=== PATIENT | male | born 1980 | race Caucasian/White ===

== ENCOUNTER 2025-04-14 16:20 | Outpatient (AMB) | payer OTHER, SELFPAY ==
--- NOTE | 2025-04-14 16:22 | A.OFFPC_ITS ---
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 Gallbladder dysfunction with hyperkinetic ejection fraction: - History of gallbladder dysfunction wit h high ejection fraction, managed with Colestid, and surgical consultation completed. Atrial fibrillation and atrial flutter status post-ablation: - History of atrial fibrillation and flu tter, treated with ablation in 2020, currently stable. Lung nodule: - Right lung nodule under surveillance w ith periodic imaging. Anxiety: - Reports increased anxiety, linked to g astrointestinal issues, considering medication changes due to side effects. Review of Systems - Gastrointestinal: Reports diarrhea and post-infectious IBS symptoms. Denies blood or mucus in stool. - Cardiovascular: Denies current palpita tions or chest pain. - Respiratory: Denies cough or dyspnea. - Neurological: Denies headaches or dizz iness. - Psychological: Reports increased anxie ty, particularly related to gastrointestinal symptoms. 10-point ROS reviewed and negative excep t as noted in HPI Past Medical History - History of salmonella infection - Gallbladder dysfunction with hyperkine tic ejection fraction - Atrial fibrillation and atrial flutter status post-ablation - Lung nodule under surveillance - Anxiety, previously managed with Lexap ro Health Maintenance - Regular monitoring of lung nodule with imaging - Previous colorectal screening performe d in 2019, no polyps found Physical Exam General: Well-appearing, in no acute distress. Vital signs: Within normal limits. HEENT: Normocephalic, atraumatic. PERRLA, EOMI. Conjunctiva clear, sclera anicteric. Oropharynx clear, mucous membranes moist. TMs intact bilaterally. Neck: Supple, no lymphadenopathy, no thyromegaly, no JVD or carotid bruits. Cardiovascular: RRR, normal S1/S2, no murmurs, rubs, or gallops. Peripheral pulses 2+ and symmetric. No edema. Respiratory: Lungs clear to auscultation bilaterally, no wheezes, rales, or rhonchi. Normal effort. Abdomen: Soft, non-tender, non-distended. Normoactive bowel sounds. No hepatosplenomegaly, no masses. History of gallbladder issues with hyperkinetic, high ejection fraction. Right upper quadrant pain noted. MSK: Full range of motion, no joint swelling or deformity. Normal gait. Skin: Warm, dry, intact. No rashes, lesions, or pallor. Neuro: Alert and oriented x3. Cranial nerves II-XII intact. Strength 5/5 throughout. Sensation intact. Reflexes 2+ symmetric. Normal coordination and gait. Psych: Appropriate mood and affect. Normal judgment and insight. Reports increased anxiety levels, especially related to gastrointestinal issues. Plan 1. Salmonella Infection - Monitor post-infectious IBS symptoms a nd manage with dietary changes. 2. Gallbladder Dysfunction With Hyperkin etic Ejection Fraction - Continue Colestid and evaluate surgica l options if symptoms escalate. 3. Atrial Fibrillation And Atrial Flutte r Status Post-Ablation - Cardiology follow-up to ensure post-ab lation stability. 4. Lung Nodule - Continue imaging surveillance and cons ider PET scan if necessary. 5. Anxiety - Explore alternative anxiety medication s like buspirone to avoid weight gain. Discussion Notes During the visit, we discussed the patient's history of salmonella infection and its post-infectious effects, including IBS symptoms. We reviewed the management of gallbladder dysfunction and the potential for surgical intervention if symptoms worsen. The patient's cardiac history, including atrial fibrillation and flutter treated with ablation, was addressed with a plan for cardiology follow-up. The lung nodule will continue to be monitored with imaging, and a PET scan may be considered. We also discussed the patient's anxiety and potential medication adjustments to avoid weight gain, including the option of buspirone. Patient was informed and verbally consented to the use of an ambient scribefor clinic note documentation during this visit. Patient Instructions - Follow up with cardiology and gastroen terology as scheduled. - Continue current medications and dieta ry modifications for IBS management. - Monitor for any changes in symptoms an d report them promptly. - Consider discussing alternative anxiet y medications with your therapist or psy chiatrist. Total time spent caring for the patient today was 30 minutes. This includes time spent before the visit reviewing the chart, time spent documenting, reviewing medications, performing a medically necessary evaluation, counseling on diagnoses, care coordination, ordering appropriate tests, ordering appropriate medications. [facility] Medical History (Updated 04/14/25 @ 16:41 by Yossi Cordero MD) Gallbladder anomaly History of atrial fibrillation Surgical History (Updated 04/14/25 @ 16:41 by Yossi Cordero MD) H/O cardiac ablation Family History (Updated 04/14/25 @ 16:29 by Kelly Morrell [facility]) Mother Diabetes 1.5, managed as type 2 Father Stroke Clot Social History (Updated 04/14/25 @ 16:29 by Kelly Morrell [facility]) Housing: Apartment Alcohol intake: current Patient Tobacco Use Status: Former Tobacco user service: No Current occupational status: employed Cognitive needs: No Hearing needs: No Vision needs: Yes (rx glasses) Questionnaire PHQ-9 Over the last 2 weeks, how often have you been bothered by any of the following problems? 1. Little interest or pleasure in doing things: not at all 2. Feeling down, depressed, or hopeless: not at all 3. Trouble falling or staying asleep, or sleeping too much: several days 4. Feeling tired or having little energy: not at all 5. Poor appetite or overeating: not at all 6. Feeling bad about yourself - or that you are a failure or have let yourself or your family down: not at all 7. Trouble concentrating on things, such as reading the newspaper or watching television: not at all 8. Moving or speaking so slowly that other people could have noticed. Or the opposite - being so fidgety or restless that you have been moving around a lot more than usual: not at all 9. Thoughts that you would be better off or of hurting yourself in some way: not at all Total score: 1 Source: Developed by Drs. Chin L. Shannon Cardenas Kurt Kroenke and colleagues, with an educational john from [employer]. Thrive Questionnaire Date Thrive assessed: 04/14/25 I am a: Patient What is your living situation today?: I have a steady place to live Within the past 12 months, did the food you bought not last and you didn't have the money to get more?: Never true Within the past 12 months, did you worry whether your food would run out before you got money to buy more?: Never true Do you have trouble paying for medicines?: No Do you have trouble getting transportation to medical appointments?: No Do you have trouble paying your heating and electricity bill?: No Do you have trouble taking care of your child, family member or friend?: No Do you have trouble with day-to-day activities such as bathing, preparing meals, shopping, managing finances, etc.?: No Are you currently unemployed and looking for a job?: No Are you interested in more education?: Yes Please select the resources that you would like help with: None Currently or been in a relationship where the following occur: No concerns reported THRIVE Score: 0 AUDIT C Alcohol Use Questionnaire (AUDIT-C) 1. How often do you have a drink containing alcohol?: 2-3 times a week 2. How many drinks containing alcohol do you have on a typical day when you are drinking?: 1 or 2 3. How often do you have six or more drinks on one occasion?: Less than monthly Total Score: 4 BETSY-7 AMB Questionnaire BETSY-7 Date BETSY - 7 assessed: 04/14/25 Feeling nervous, anxious, or on edge: 2 = More than half the days Not being able to stop or control worryin = Several days Worrying too much about different things: 1 = Several days Trouble relaxin = Several days Being so restless that it is hard to sit still: 0 = Not at all Becoming easily annoyed or irritable: 0 = Not at all Feeling afraid as if something awful might happen: 1 = Several days Total BETSY-7 score (0-4 normal; 5-9 mild; 10-14 moderate; 15-21 severe): 6 Source: Developed by Shannon Ryder Kurt Kroenke and colleagues, with an educational john from [email or web address]. Physical exam (Primary Care) Vital Signs: Last Vital Signs Temp 98.0 F 04/14/25 16:26 Pulse 77 04/14/25 16:26 BP 138/92 H 04/14/25 16:26 Pulse Ox 77 L 04/14/25 16:26 Oxygen Delivery Method Room Air 04/14/25 16:26 BMI result Body Mass Index 26.7 Tobacco/Smoking Status: Tobacco use Status Tobacco use date assessed 04/14/25 04/14/25 16:25 Patient Tobacco Use Status Former Tobacco user 04/14/25 16:32 PHQ-9: PHQ-9 Score PHQ-9: Total score 1 04/14/25 16:25 Thrive Assessment: Date of Thrive Assessment Date Thrive assessed 04/14/25 04/14/25 16:25 Currently or been in a relationship where the following occur: No concerns reported Coding Level of Care Code New Pt Level 4 (54442) Diagnoses 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 Lung nodule R91.1 Anxiety F41.9 Elevated blood pressure reading R03.0 History of atrial fibrillation Z86.79 H/O cardiac ablation Z98.890 History of Salmonella gastroenteritis Z86.19 History of atrial flutter Z86.79 Assessment & Plan Assessment & Plan (1) Gallbladder anomaly: Code(s): 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 - Other congenital malformations of gallbladder Category: Medical (2) Lung nodule: Code(s): R91.1 - Solitary pulmonary nodule (3) Anxiety: Code(s): F41.9 - Anxiety disorder, unspecified (4) Elevated blood pressure reading: Code(s): R03.0 - Elevated blood-pressure reading, without diagnosis of hypertension (5) History of atrial fibrillation: Code(s): Z86.79 - Personal history of other diseases of the circulatory system Category: Medical (6) H/O cardiac ablation: Code(s): Z98.890 - Other specified postprocedural states Category: Surgical (7) History of Salmonella gastroenteritis: Code(s): Z86.19 - Personal history of other infectious and parasitic diseases (8) History of atrial flutter: Code(s): Z86.79 - Personal history of other diseases of the circulatory system Plan Orders: Orders Complete Blood Count Auto Diff Today Z13.9 - Encounter for screening, unspecified Comprehensive Met. Panel Today Z13.9 - Encounter for screening, unspecified HIV Ab/Ag Today Z13.9 - Encounter for screening, unspecified UA CC w/rflx Micro + Cult Today Z13.9 - Encounter for screening, unspecified Vitamin B12 and Folate Today Z13.9 - Encounter for screening, unspecified Vitamin D 1,25 dihydroxy Today Z13.9 - Encounter for screening, unspecified Chlamydia Species Ab Panel Today Z13.9 - Encounter for screening, unspecified Syphilis Screen Today Z13.9 - Encounter for screening, unspecified Hemoglobin A1c Today Z13.9 - Encounter for screening, unspecified Hepatitis B Surface Antibody Today Z13.9 - Encounter for screening, unspecified Hepatitis B Surface Antigen Today Z13.9 - Encounter for screening, unspecified Hepatitis C Antibody Today Z13.9 - Encounter for screening, unspecified Lipid Panel Today Z13.9 - Encounter for screening, unspecified CT NG by PCR Urine Today Z13.9 - Encounter for screening, unspecified Referrals Cardiology Referral Z86.79 - Personal history of other diseases of the circulatory system, Z98.890 - Other specified postprocedural states Gastroenterology Referral Q44.1 - Other congenital malformations of gallbladder Medications: New dicyclomine 10 mg PO BID 30 caps 0RF
[2025-04-14 16:26] VITALS: BP 138/92; PULSE 77; TEMP 36.7; O2SAT 77; BMI 26.7
--- OUTSIDE RECORDS SUMMARY | 2025-04-14 18:53 | XMS_ITS | Clinical Summary ---
Author Organization [facility] Address [facility] [place] [address] Care Team Providers Care Collection Systems Modeler Name Role Phone Dilia Pinedo APRN Primary Care Provider [phone] Allergies Active Allergy Reactions Criticality Noted Date Comments Penicillins Rash Medium 03/17/2019 Medications colestipoL (COLESTID) 1 gram Tablet Take 1 g by mouth daily. 1 Active predniSONE (Deltasone) 10 mg tabletIndicatio ns:Adenoiditis 6 PO QD x 2d, then 5 PO QD x 2d, then 4 PO QD x 2d, then 3 PO QD x 2d, then 2 PO QD x 2d, then 1 PO QD x 2d 42 tablet 4 Active Additional Information Patient not taking.Reported on 01/23/2024 predniSONE (Deltasone) 10 mg tabletIndicatio ns:Adenoiditis, Adenoid hypertrophy,ETD (Eustachian tube dysfunction), right 4 PO QD x 3, then 3 PO QD x 3d, then 2 PO QD x 3d, then 1 PO QD x 3d 45 tablet 4 Active Additional Information Patient not taking.Reported on 01/23/2024 acetaminophen (TYLENOL ORAL) Take by mouth. Active naproxen sodium (ALEVE ORAL) Take by mouth. Ac tive IBUPROFEN ORAL Take by mouth. Active Active Problems Problem Noted Date Diagnosed Date Atrial fibrillation 05/29/2022 Overview (05/29/2022): [place] Chronic abdominal pain 11/29/2021 Overview (05/29/2022): Last Assessment & Plan: 41-year-old gentleman with chronic right upper quadrant abdominal pain. His episodes of pain have lasted his entire adult life. He is without clear etiology. He is hopeful today the cholecystectomy will resolve his symptoms. He has no evidence of cholelithiasis or cholecystitis. His ejection fraction on HIDA scan is the upper limits of normal. Today, we discussed biliary dyskinesia, hyperdynamic gallbladder etc. I have recommended against cholecystectomy as this is unlikely to resolve his symptoms. It may in fact worsen his bile acid diarrhea. It may worsen some of his urgency bowel movement. I have recommended that he focus on dietary causes of his GI symptoms. He has never had a CT scan of the abdomen and pelvis. Therefore, we will plan for that study to rule out other solid organ dysfunction ARISTEO (obstructive sleep apnea) 04/01/2020 Overview (05/29/2022): HSAT 03/24/2020: AHI 9.7 (supine 14, non-supine 1.1), average O2 94%, low O2 sat 85% Current therapy: Positional therapy Last Assessment & Plan: IMPRESSION: mild, positional ARISTEO revealed on HSAT Discussed the pathophysiology, diagnosis/study results, treatment options and complications of sleep apnea in detail. Discussed the consequences of untreated sleep apnea, and its association with metabolic syndrome, cardiovascular and cerebrovascular disease. Positional therapy may be sufficient - we discussed devices like snore ball and bumpers to discourage supine sleeping. If positional therapy ineffective or not tolerated, will consider PAP therapy. Reviewed good sleep hygiene, including avoidance of alcohol and caffeine close to bedtime. Avoid drowsy driving. If sx continue/worsen or he develops risk factors like HTN, he was advised to call our office for f/u. HSAT 03/24/2020: AHI 9.7 (supine 14, non-supine 1.1), average O2 94%, low O2 sat 85% Current therapy: Positional therapy Overweight with body mass in dex (BMI) of 28 to 28.9 in adult 04/01/2020 Overview (05/29/2022): Last Assessment & Plan: Weight loss was advised through dietary changes and exercise. Daytime sleepiness 03/11/2020 Overview (05/29/2022): Last Assessment & Plan: IMPRESSION: Strong suspicion of sleep apnea based on classic symptoms, class III airway and FHx. May have been underlying trigger to hx of afib/flutter. Will order a Home Sleep Test. If no sleep apnea is noted, will consider an in lab overnight PSG followed by MSLT to look for narcolepsy if suspected. Discussed the pathophysiology, symptoms, diagnosis, treatment options and complications of sleep apnea in detail. Discussed the consequences of untreated sleep apnea, and its association with metabolic syndrome, cardiovascular and cerebrovascular disease. Discussed treatment options like conservative management (including weight loss, lateral sleep position, avoidance of alcohol and SHOE CUTTER depressants), surgical options, oral/ dental appliances, and PAP therapy. Reviewed good sleep hygiene, including avoidance of alcohol and caffeine close to bedtime. Driving safety precautions reinforced and the patient states he understands. Medication compliance reinforced. Weight loss through dietary changes and regular exercise was advised. Follow-up in 6-8 weeks based on sleep study results and treatment plan. Snoring 03/11/2020 Overview (05/29/2022): Last Assessment & Plan: As above. Social History Tobacco Use Types Packs/Day Years Used Date Smoking Tobacco: Former Cigarettes Smokeless Tobacco: Never Tobacco Cessation:Counseling Given: Not Answered Comments:Quit 2019 DH IPV Inpatient Questions Answer Date Recorded Does Anyone Try to Keep You From Having Contact with Others or Doing Things Outside Your Home? no 12/12/2023 Feels Threatened by Someone no 11/2023 Feels Unsafe at Home or Work/School no 12/12/2023 Physical Signs of Abuse Present no 12/12/2023 Sex and Gender Information Value Date Recorded Sex Assigned at Not on file Legal Sex Male 12:12 PM EST Gender Identity Not on file Sexual Orientation Not on file Last Filed Vital Signs Vital Sign Reading Time Taken Comments Blood Pressure 116/84 12/23/2023 8:29 AM EDT Pulse 78 12/23/2023 8:29 AM EDT Temperature 36.7 C (98 F) 12/23/2023 8:29 AM EDT Respiratory Rate 16 12/23/2023 8:29 AM EDT Oxygen Saturation 98% 12/23/2023 8:29 AM EDT Inhaled Oxygen Concentration - - Weight 89.6 kg (197 lb 9.6 oz) 12/23/2023 8:29 A M EDT Height 175.3 cm (5' 9 ) 12/12/2023 8:26 AM EDT Body Mass Index 29.18 12/12/2023 8:26 AM EDT Plan of Treatment Health Maintenance Due Date Last Done Comments CT Colonography 1978 Colonoscopy 1978 Colorectal Cancer Screening 1978 FIT DNA 1978 FIT 1978 Sigmoidoscopy (10 year) with FIT yearly 1978 Sigmoidoscopy 1978 HIV screen 1996 Hepatitis C Screening 1996 Lipid Screening 1996 Hepatitis B vaccine (0-59 yr s) and Risk (1) 1997 Tetanus/Diphtheria/Pertussis Vaccines (1 - Tdap) 1997 Covid-19 Vaccine (1 - season) 2025 Influenza (Flu) vaccine (1 o f 1 - Influenza standard series) 03/09/2025 Diabetes Screening (HgbA1C or Glucose) 10/29/2026, 04/24/2023 Procedures Procedure Name Priority Date/Time Associated Diagnosis Comments BASIC METABOLIC PANEL Routine 10/30/2023 8:05 AM EDT Pre-op testing Adenoid hypertrophy from Last 3 Months or Most Recently Relevant to Health Maintenance Results * (ABNORMAL) Basic Metabolic Panel (non-fasting) (10/30/2023 8:05 AM EDT) Glucose 93 65 - 199 mg/dL [facility] Comment:Diabetes: >=200 mg/d L plus symptoms Blood Urea Nitrogen 28(H) 10 - 20 mg/dL [facility] Creatinine 1.33 0.80 - 1.50 mg/dL [facility] Sodium 141 135 - 145 mmol/L [facility] Potassium 4.4 3.5 - 5.0 mmol/L [facility] Comment: Please note: Patients with WBC >100,000 may have falsely elevated Potassium levels. For accurate Potassium quantification in these patients send serum separator tube (gold top) for subsequent determinations. Contact the Clinical Chemistry Laboratory if there are any questions. Chloride 106 98 - 107 mmol/L [facility] Carbon Dioxide 25 22 - 31 mmol/L [facility] Anion Gap 10 5 - 15 mmol/L [facility] Calcium 8.9 8.5 - 10.5 mg/dL [facility] Est Glomerular Filtration Rate 68 >=60 mL/min/1. 73 m [facility] Comment: This patient's estimated GFR was calculated using the 2020 CKD-EPI equation. The estimated GFR can vary from the measured GFR by up to 30% in the absence of rapidly changing kidney function. Assessment of the estimated GFR is not appropriate when creatinine concentrations are rapidly changing. For clinical situations in which a more precise estimate of GFR is necessary, consider alternative methods of GFR estimation such as a 24-hour urine creatinine clearance. Assignment of CKD stage 1-5 for patients with an eGFR near the transition point between stages may be based on clinical assessment of muscle mass and symptoms in addition to eGFR. Blood 10/30/2023 8:05 AM EDT 10/30/2023 4:54 PM EDT Narrative Resulting Agency Comment Spec In Lab us Ivan Luke MD CHEMISTRY ORDERABLES Mariza ellis Result [facility] [place] [address] from Last 3 Months or Most Recently Relevant to Health Maintenance Insurance [id number] (Home) [address] [place] [id number] [facility] Care Teams Collection Systems Modeler Relationship Specialty Start Date End Date Dilia Pinedo APRN [phone] [address] PCP - General Family Medicine 05/25/22
--- OUTSIDE RECORDS SUMMARY | 2025-04-14 18:53 | XMS_ITS | Encounter Summary ---
Author Organization [facility] Address [address] [place] [address] Care Team Providers Care It Director Name Role Phone Unavailable Primary Care Provider Unavailabl e Reason for Visit * Reason Onset Date Comments ATTEMPT TO SCHEDULE 04/10/2025 Encounter Details Date Type Department Care Team (Late st Contact Info) Description 04/10/2025 Telephone Gastroenterology - [address] [phone] Damian Ashraf MD [address] [address] Social History Tobacco Use Types Packs/Day Years Used Date Smoking Tobacco: Never Assessed Sex and Gender Information Value Date Recorded Sex Assigned at Not on file Legal Sex Male 10:25 AM EDT Gender Identity Not on file Sexual Orientation Not on file documented as of this encounter Progress Notes * Fifi Wang - 04/10/2025 2:20 PM EDT Office visit scheduled. * Ayana Moreno - 04/10/2025 11:17 AM EDT 1st attempt to reach patient to schedule appointment for ABD PAIN AND LOOSE STOOLS. Left message tocall back and placed into called bin. documented in this encounter Plan of Treatment Upcoming Encounters Date Type Department Care Team (Late st Contact Info) Description 10/07/2025 8:20 AM EDT Consult Gastroenterology - [place] [address] [facility] [address] [place] [phone] Meghan Regalado, PIL[address] [facility] [address] [place] [address] documented as of this encounter Visit Diagnoses Not on filedocumented in this encounter
--- OUTSIDE RECORDS SUMMARY | 2025-04-14 18:53 | XMS_ITS | Clinical Summary ---
Author Organization [facility] 299 [facility] [address] Address [address] [place] [address] Phone Care Team Providers Care Environmental Engineering Aide Name Role Phone Unavailable Primary Care Provider Unavailabl e Encounters Date Type Department Care Team Description 04/10/2025 Telephone Gastroenterology - [address] [place] [phone] Damian Ashraf MD from Last 3 Months Social History Tobacco Use Types Packs/Day Years Used Date Smoking Tobacco: Never Assessed Sex and Gender Information Value Date Recorded Sex Assigned at Not on file Legal Sex Male 10:25 AM EDT Gender Identity Not on file Sexual Orientation Not on file Plan of Treatment Upcoming Encounters Date Type Department Care Team ([facility] st Contact Info) Description 10/07/2025 8:20 AM EDT Consult Gastroenterology - [place] 175 [facility] 175 [facility] [address] [place] [phone] Meghan Regalado NP 175 [facility] [address] [place] [address] Health Maintenance Due Date Last Done Comments Colorectal Cancer Screening: Colonoscopy 1978 DTaP,Tdap,and Td Vaccines (1 - Tdap) 1997 Hepatitis B Vaccines (1 of 3 - 19+ 3-dose series) 1997 Depression Screening 07/09/2024 Cholesterol Screening (Lipid Panel) 03/03/2025 HIV Screening 03/03/2025 Hepatitis C Screening 03/03/2025 Social Influencers of Health Screening 03/03/2025 COVID-19 Vaccine (1 - 2023-2 5 season) 2025 Influenza Vaccine (#1) 2025 RSV Immunization Adult Patie nts (1 - 1-dose 75+ series) 2053 HIB Vaccines Aged Out No longer eligi ble based on patient's age to complete this topic HPV Vaccines Aged Out No longer eligi ble based on patient's age to complete this topic Hepatitis A Vaccines Aged Out No long er eligible based on patient's age to complete this topic IPV Vaccines Aged Out No longer eligi ble based on patient's age to complete this topic MMR Vaccines Aged Out No longer eligi ble based on patient's age to complete this topic Meningococcal ACWY Vaccine Aged Out N o longer eligible based on patient's age to complete this topic Meningococcal B Vaccine Aged Out No l onger eligible based on patient's age to complete this topic Pneumococcal Vaccine: Pediat rics (0 to 5 Years) and At-Risk Patients (6 to 49 Years) Aged Out No longer eligible b ased on patient's age to complete this topic RSV Immunization Patients Un jamila 20 months Aged Out No longer eligible b ased on patient's age to complete this topic Varicella Vaccines Aged Out No longer eligible based on patient's age to complete this topic Insurance [facility]
== END 2025-04-14 17:04 | disposition home or self-care (01) ==
LOC: HO.HMCFMS 16:21
PROVIDERS: Visit Provider Student in an Organized Health Care Education/Training Program
DX: Q44.1 Other congenital malformations of gallbladder (principal); R91.1 Solitary pulmonary nodule; F41.9 Anxiety disorder, unspecified; R03.0 Elevated blood-pressure reading, without diagnosis of hypertension; Z86.79 Personal history of other diseases of the circulatory system; Z98.890 Other specified postprocedural states; Z86.19 Personal history of other infectious and parasitic diseases

== ENCOUNTER → 2025-04-14 16:20 | Outpatient (BNVA) | payer OTHER, SELFPAY | PROVIDERS: Visit Provider Student in an Organized Health Care Education/Training Program | DX: Z76.89 Persons encountering health services in other specified circumstances (principal); R91.1 Solitary pulmonary nodule; F41.9 Anxiety disorder, unspecified; R03.0 Elevated blood-pressure reading, without diagnosis of hypertension; Q44.1 Other congenital malformations of gallbladder; Z86.19 Personal history of other infectious and parasitic diseases; Z86.79 Personal history of other diseases of the circulatory system; Z13.30 Encounter for screening examination for mental health and behavioral disorders, unspecified; Z13.39 Encounter for screening examination for other mental health and behavioral disorders; Z98.890 Other specified postprocedural states | CPT/HCPCS: 99202 ==

== ENCOUNTER 2025-04-21 09:54 | Outpatient (REF) | payer BC, OTHER, SELFPAY ==
--- OUTSIDE RECORDS SUMMARY | 2025-04-21 11:18 | XMS_ITS | Clinical Summary ---
Author Organization [facility] Address [facility] [place] [address] Care Team Providers Care Integration Consultant Name Role Phone Dilia Pinedo APRN Primary Care Provider [phone] Allergies Active Allergy Reactions Criticality Noted Date [...] fibrillation 05/29/2022 Overview (05/29/2022): [place] in [place] Chronic abdominal pain 11/29/2021 Overview (05/29/2022): Last [...] lateral sleep position, avoidance of alcohol and PICU NURSE depressants), surgical options, oral/ dental appliances, and [...] EDT) Glucose 93 65 - 199 mg/dL [facility] Comment:Diabetes: >=200 mg/d L plus symptoms Blood Urea Nitrogen 28(H) 10 - 20 mg/dL [facility] Creatinine 1.33 0.80 - 1.50 mg/dL [facility] Sodium 141 135 - 145 mmol/L [facility] Potassium 4.4 3.5 - 5.0 mmol/L [facility] Comment: Please note: Patients with WBC >100,000 may have falsely elevated Potassium levels. For accurate Potassium quantification in these patients send serum separator tube (gold top) for subsequent determinations. Contact the Clinical Chemistry Laboratory if there are any questions. Chloride 106 98 - 107 mmol/L [facility] Carbon Dioxide 25 22 - 31 mmol/L [facility] Anion Gap 10 5 - 15 mmol/L [facility] Calcium 8.9 8.5 - 10.5 mg/dL [facility] Est Glomerular Filtration Rate 68 >=60 mL/min/1. 73 m [facility] Comment: This patient's estimated GFR was [...] Luke MD CHEMISTRY ORDERABLES Mariza ellis Result [facility] [place] [address] from Last 3 Months or Most Recently Relevant to Health Maintenance Insurance [id number] (Home) [address] [place] [address] [facility] O[facility] Care Teams Integration Consultant Relationship Specialty Start Date End Date Dilia Pinedo APRN [address] [address] PCP - General Family Medicine 05/25/22
--- OUTSIDE RECORDS SUMMARY | 2025-04-21 11:18 | XMS_ITS | Clinical Summary ---
Author Organization [facility] 299 [facility] [address] Address [address] [place] [address] Phone Care Team Providers Care Panel Lay Up Worker Name Role Phone Unavailable Primary Care Provider Unavailabl e Encounters Date Type Department Care Team Description 04/10/2025 Telephone Gastroenterology - [address] [place] [phone] Damian Ashraf MD from Last 3 Months Social History Tobacco Use Types Packs/Day Years Used Date Smoking Tobacco: Never Assessed Sex and Gender Information Value Date Recorded Sex Assigned at Not on file Legal Sex Male 10:25 AM EDT Gender Identity Not on file Sexual Orientation Not on file Plan of Treatment Upcoming Encounters Date Type Department Care Team ([facility] st Contact Info) Description 10/07/2025 8:20 AM EDT Consult Gastroenterology - [place] 175 [facility] 175 [facility] [address] [place] [phone] Meghan Regalado NP 175 [facility] [address] [place] [address] Health Maintenance Due Date Last Done Comments [...] patient's age to complete this topic Insurance [facility]
[2025-04-21 13:15] LABS: MANUAL DIFF FLAG NO
[2025-04-21 13:18] LABS: Appearance Urine Turbid; Glucose Urine UA Negative (Negative); PH 6.0 (5.0-9.0); Specific Gravity - Urine 1.025 (1.005-1.025)
[2025-04-21 13:37] LABS: Hematocrit 41.3 % (42.0-52.0); Hemoglobin 14.0 g/dl (14.0-18.0); Imm Gran Abs Auto 0.01 X10*3/uL (0.00-0.03); Imm Gran Pct Auto 0.2 % (0.0-0.4); Lymphocytes Absolute Auto 1.5 X10*3/uL (1.2-4.9); Mean Corpuscular HGB Conc 33.9 g/dl (31.0-36.0); Mean Corpuscular Hemoglobin 30.4 pg (27.0-33.0); Mean Corpuscular Volume 89.8 fL (80.0-98.0); NRBC Abs Auto 0.000 X10*3/uL (0.0-0.012); NRBC Pct Auto 0.0 /100WBC (0.0-0.2); Platelet Count 223 X10*3/uL (160-400); Red Blood Count 4.60 X10*6/uL (4.60-5.80); White Blood Count 4.8 X10*3/uL (4.8-10.8)
[2025-04-21 13:44] LABS: Total Hemoglobin (HGBA1C) 3562.7369 umol/L
[2025-04-21 14:04] LABS: Alanine Aminotransferase 30 U/L (0-40); Albumin Level 4.6 g/dL (3.5-5.0); Anion Gap 10 (12-20); Aspartate Amino Transferase 27 U/L (5-37); Blood Urea Nitrogen 21 mg/dL (9-16); Calcium 8.9 mg/dL (8.4-10.2); Carbon Dioxide 29 mmol/L (22-29); Chloride 108 mmol/L (96-108); Cholesterol 166 mg/dL (<200); Estimated Glomerular Filt Rate > 60; HDL Cholesterol 40 mg/dL (>40); Potassium 4.0 mmol/L (3.3-5.1); Sodium 143 mmol/L (135-145); Total Protein 7.2 g/dL (6.5-8.0); Triglycerides 142 mg/dL (<150)
[2025-04-21 14:16] LABS: Alkaline Phosphatase 50 U/L (39-117)
[2025-04-21 14:21] LABS: Folate 8.4 ng/mL (> or = 4.0); Vitamin B12 148 pg/mL (200-900)
[2025-04-21 15:24] LABS: CT PCR Urine NOT DETECTED (Not Detect.); NG PCR Urine NOT DETECTED (Not Detect.)
[2025-04-22 03:15] LABS: Syphilis Screen Nonreactive (Nonreactive)
[2025-04-22 04:03] LABS: HBS Num1 0.21 mIU/mL (0-7.99); HBsAGNum1 0.36 S/CO (0.00-0.99); HIV Num 1 0.06 S/CO (0.00-0.99); Hepatitis B Surface Antigen Negative (Negative); ~HepC Num1 0.08 S/CO (0.00-0.79); ~Hepatitis B Surface Antibody NONREACTIVE (Nonreactive); ~Hepatitis C Antibody Nonreactive (Nonreactive)
[2025-04-25 11:44] LABS: VITAMIN D (1,25 OH) D3 35 pg/mL; Vit D (1,25-Dihydroxy) Total 35 pg/mL (18-72); Vitamin D (1,25 OH) D2 <8 pg/mL
[2025-04-27 18:34] LABS: Chlamydia Trachomatis IgA <1:16 titer (<1:16)
== END 2025-04-21 09:55 | disposition home or self-care (01) ==
LOC: HO.10HDL 09:54
PROVIDERS: Visit Provider Student in an Organized Health Care Education/Training Program
DX: Z13.89 Encounter for screening for other disorder (principal); Z20.2 Contact with and (suspected) exposure to infections with a predominantly sexual mode of transmission; Z11.4 Encounter for screening for human immunodeficiency virus [HIV]; Z13.6 Encounter for screening for cardiovascular disorders; Z13.1 Encounter for screening for diabetes mellitus
CPT/HCPCS: 80053; 80061; 81003; 82607; 82652; 82746; 83036; 85025; 86631; 86632; 86706; 86780; 86803; 87340; 87389; 87491; 87591

== ENCOUNTER 2025-04-28 08:31 | Outpatient (REF) | payer BC, OTHER, SELFPAY ==
[2025-04-28 14:12] LABS: Gamma Glutamyl Transpeptidase 53 U/L (11-51)
== END 2025-04-28 08:32 | disposition home or self-care (01) ==
LOC: HO.HKASLDS 08:31
PROVIDERS: PCP Student in an Organized Health Care Education/Training Program; Visit Provider Student in an Organized Health Care Education/Training Program
DX: R91.1 Solitary pulmonary nodule (principal); R17 Unspecified jaundice; K58.9 Irritable bowel syndrome, unspecified; I48.91 Unspecified atrial fibrillation; F41.9 Anxiety disorder, unspecified; K82.8 Other specified diseases of gallbladder; I48.92 Unspecified atrial flutter; E53.8 Deficiency of other specified B group vitamins; Q44.1 Other congenital malformations of gallbladder; Z98.890 Other specified postprocedural states
CPT/HCPCS: 36415; 82248; 82977

== ENCOUNTER 2025-04-28 08:31 | Outpatient (AMB) | payer BC, OTHER, SELFPAY ==
[2025-04-28 08:38] VITALS: BP 131/84; PULSE 68; RESP 16; TEMP 36.6; O2SAT 98; BMI 27.0
--- NOTE | 2025-04-28 08:38 | A.OFFPC_ITS ---
Vital Signs 04/28/25 08:38 Height 5 ft 10.55 in Weight 191 lb 4 oz BMI 27.0 BP 131/84 Blood Pressure Location Rt brachial Position Sitting Respiration 16 Pulse 68 Pulse Source Pulse Oximeter Temp 97.8 F Temp Source Oral Pulse Oximetry (%) 98 Oxygen Delivery Method Room Air Intake Visit Reasons: 2 wk f/u Accompanied by: Self / Same As Patient Allergies Penicillins (PCN) Allergy (Intermediate, Verified 04/14/25 16:27) Rash Tobacco use date assessed: 04/14/25 Dental Screening Dental Screen Date: 04/28/25 Did you have a dental visit in the last 12 months?: Yes Was dental information given to patient?: Patient has dentist HPI HPI Comments History of Present Illness Details Consent Patient was informed and verbally consented to the use of an ambient scribe for clinic note documentation during this visit. 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 Postinfectious Irritable Bowel Syndrome (IBS): The patient developed IBS symptoms following a salmonella infection in February. He continues to experience gastrointestinal disturbances which impact function, and finds partial relief with dietary modifications. He reports exacerbation of symptoms requiring occasional use of NSAIDs, despite being advised to minimize their use due to gastrointestinal concerns. Gallbladder Dysfunction with Hyperkinetic Ejection Fraction: The patient has a documented history of gallbladder dysfunction characterized by hyperkinetic ejection fraction. The condition has progressively worsened, and he has been referred to gastroenterology. 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 Surgical History: - Ablation for atrial fibrillation and a trial flutter in 2020 Medications: Dicyclomine Social History: Diagnostic Results: - Labs: White blood cells, red blood oleg ls, hemoglobin are normal; hematocrit mildly low at 41.3%; total bilirubin elevated at 2.1 mg/dL; vitamin B12 low at 148 pg/mL; other electrolytes, liver function tests except total bilirubin, renal function, glucose, lipids, and vitamins are normal; negative for hepatitis B, hepatitis C, and HIV. Review of Systems - Gastrointestinal: Reports ongoing IBS symptoms; reports relief of symptom inflammation with NSAID use - Cardiovascular: Denies current symptom s related to atrial fibrillation or flutter; stable post-ablation - Respiratory: Denies respiratory sympto ms related to right lung nodule surveillance - Psychiatric: Reports anxiety and consi deration for switching to buspirone 10-point ROS reviewed and negative excep t as noted in HPI Past Medical History - Postinfectious irritable bowel syndrom e (IBS) following salmonella infection - Gallbladder dysfunction with hyperkine tic ejection fraction - Atrial fibrillation and atrial flutter , status post-ablation - Right lung nodule under surveillance - Anxiety Health Maintenance - Surveillance imaging for lung nodule e very 6 months - Initiation of vitamin B12 injections t o manage deficiency Physical Exam General: Well-appearing, in no acute distress. Vital signs: Blood pressure improved compared to last visit. HEENT: Normocephalic, atraumatic. PERRLA, EOMI. Conjunctiva clear, sclera anicteric. Oropharynx clear, mucous membranes moist. TMs intact bilaterally. Neck: Supple, no lymphadenopathy, no thyromegaly, no JVD or carotid bruits. Cardiovascular: RRR, normal S1/S2, no murmurs, rubs, or gallops. Peripheral pulses 2+ and symmetric. No edema. Past medical history of atrial fibrillation and atrial flutter, status post ablation in 2020, currently stable. Respiratory: Lungs clear to auscultation bilaterally, no wheezes, rales, or rhonchi. Normal effort. Right lung nodule under surveillance with periodic imaging. Abdomen: Soft, non-tender, non-distended. Normoactive bowel sounds. No hepatosplenomegaly, no masses. Gallbladder dysfunction with hyperkinetic ejection fraction. MSK: Full range of motion, no joint swelling or deformity. Normal gait. Skin: Warm, dry, intact. No rashes, lesions, or pallor. Neuro: Alert and oriented x3. Cranial nerves II-XII intact. Strength 5/5 throughout. Sensation intact. Reflexes 2+ symmetric. Normal coordination and gait. Psych: Appropriate mood and affect. Normal judgment and insight. History of anxiety, considering switching medication to buspirone, but waiting to reassess after B12 levels are improved. Plan 1. Postinfectious Irritable Bowel Syndro me (Ibs) - Continue dietary modifications and cur rent symptom management strategies. 2. Gallbladder Dysfunction With Hyperkin etic Ejection Fraction - Follow up with the surgical team regar ding potential intervention. - Use of NSAIDs as needed is acceptable for symptom relief. 3. Atrial Fibrillation And Atrial Flutte r - Schedule cardiology follow-up to monit or condition post-ablation. 4. Right Lung Nodule - Continue surveillance with CT scans ev macie 6 months and maintain pulmonology referral. 5. Anxiety - Consider switching to buspirone after vitamin B12 levels are stabilized to see if symptoms improve. 6. Vitamin B12 Deficiency - Initiate vitamin B12 injections with a regimen to boost levels followed by reevaluation. Discussion Notes During this visit, I discussed with the patient his ongoing postinfectious IBS and the associated gallbladder dysfunction. We reviewed his management strategies, including dietary modifications and symptom management, and discussed NSAID use for inflammatory episodes. We touched on the surgical options for gallbladder dysfunction with a referral already made to gastroenterology and a general surgery referral was initiated given worsening symptoms. We reviewed his past history of atrial fibrillation, noting stability post-ablation and the need for cardiology follow-up. Surveillance of the noted lung nodule was emphasized, with a pulmonology referral in place. Anxiety management was discussed with potential buspirone use after addressing vitamin B12 deficiency. Consent for these discussions and plans was duly documented, and follow-up steps were detailed. Patient Instructions - Follow dietary changes for IBS managem ent. - If contacted, follow up with the surgi yefri team about gallbladder dysfunction. - Schedule and attend a cardiology follo w-up. - Maintain CT scan appointments every 6 months for lung nodule surveillance. - Arrange to receive vitamin B12 injecti ons as planned and follow up for levels. - Monitor for any side effects or worsen ing symptoms and seek care if necessary. Medical Decision Making The patient?s current presentation indicates ongoing management needs for several chronic conditions. IBS symptoms following a salmonella infection require dietary management. The gallbladder dysfunction?s worsening symptoms suggest surgical evaluation, while NSAID use remains justified for acute relief. Stable post-ablation atrial fibrillation warrants regular cardiology follow-up. Lung nodule surveillance and pulmonology involvement aim to capture any changes promptly. Anxiety considerations include potential buspirone therapy post- vitamin B12 correction, reflecting a thoughtful approach to address possible multifactorial causes of the patient's symptoms. The plan includes specific follow-ups, interventions, and monitoring strategies aligning with the patient's clinical status and lab findings. Total time spent caring for the patient today was 30 minutes. This includes time spent before the visit reviewing the chart, time spent documenting, and time spent reviewing laboratory results, diagnostic imaging, medications, performing a medically necessary evaluation, counseling on diagnoses, care coordination, ordering appropriate tests, ordering appropriate medications. [facility] Medical History (Updated 04/28/25 @ 08:16 by Yossi Cordero MD) Total bilirubin, elevated Gallbladder anomaly History of atrial fibrillation Surgical History H/O cardiac ablation Family History Mother Diabetes 1.5, managed as type 2 Father Stroke Clot Social History Housing: Apartment Alcohol intake: current Patient Tobacco Use Status: Former Tobacco user service: No Current occupational status: employed Cognitive needs: No Hearing needs: No Vision needs: Yes (rx glasses) Questionnaire Thrive Questionnaire Date Thrive assessed: 04/14/25 I am a: Patient What is your living situation today?: I have a steady place to live Within the past 12 months, did the food you bought not last and you didn't have the money to get more?: Never true Within the past 12 months, did you worry whether your food would run out before you got money to buy more?: Never true Do you have trouble paying for medicines?: No Do you have trouble getting transportation to medical appointments?: No Do you have trouble paying your heating and electricity bill?: No Do you have trouble taking care of your child, family member or friend?: No Do you have trouble with day-to-day activities such as bathing, preparing meals, shopping, managing finances, etc.?: No Are you currently unemployed and looking for a job?: No Are you interested in more education?: Yes Please select the resources that you would like help with: None Currently or been in a relationship where the following occur: No concerns reported THRIVE Score: 0 BETSY-7 AMB Questionnaire BETSY-7 Date BETSY - 7 assessed: 04/14/25 Source: Developed by Drs. Chin Cardenas, Shannon Coleman, Mandeep Gomez and colleagues, with an educational john from [employer]. Physical exam (Primary Care) Vital Signs: Last Vital Signs Temp 97.8 F 04/28/25 08:38 Pulse 68 04/28/25 08:38 Resp 16 04/28/25 08:38 BP 131/84 04/28/25 08:38 Pulse Ox 98 04/28/25 08:38 Oxygen Delivery Method Room Air 04/28/25 08:38 BMI result Body Mass Index 27.0 Tobacco/Smoking Status: Tobacco use Status Tobacco use date assessed 04/14/25 04/28/25 08:43 Patient Tobacco Use Status Former Tobacco user 04/28/25 08:43 Thrive Assessment: Date of Thrive Assessment Date Thrive assessed 04/14/25 04/28/25 08:43 Currently or been in a relationship where the following occur: No concerns reported Coding Level of Care Code Est Pt Level 4 (86947) Diagnoses Total bilirubin, elevated R17 Irritable bowel syndrome K58.9 Dysfunctional gallbladder K82.8 Atrial fibrillation and flutter I48.91; I48.92 History of cardiac radiofrequency ablation Z98.890 Nodule of right lung R91.1 Anxiety F41.9 Low vitamin B12 level E53.8 Assessment & Plan Assessment & Plan (1) Total bilirubin, elevated: Code(s): R17 - Unspecified jaundice Category: Medical (2) Irritable bowel syndrome: Code(s): K58.9 - Irritable bowel syndrome, unspecified (3) Dysfunctional gallbladder: Code(s): K82.8 - Other specified diseases of gallbladder (4) Atrial fibrillation and flutter: Code(s): I48.91 - Unspecified atrial fibrillation; I48.92 - Unspecified atrial flutter (5) History of cardiac radiofrequency ablation: Code(s): Z98.890 - Other specified postprocedural states (6) Nodule of right lung: Code(s): R91.1 - Solitary pulmonary nodule (7) Anxiety: Code(s): F41.9 - Anxiety disorder, unspecified (8) Low vitamin B12 level: Code(s): E53.8 - Deficiency of other specified B group vitamins Plan Orders: Orders Gamma Glutamyl Transpeptidase Today R17 - Unspecified jaundice US abdomen limited Today R17 - Unspecified jaundice Bilirubin Direct Today R17 - Unspecified jaundice Referrals General Surgery 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
--- OUTSIDE RECORDS SUMMARY | 2025-04-28 08:48 | XMS_ITS | Clinical Summary ---
Author Organization [facility] Address [facility] [place] [address] Care Team Providers Care Special Needs Nanny Name Role Phone Dilia Pinedo APRN Primary Care Provider [phone] Allergies Active Allergy Reactions Criticality Noted Date [...] fibrillation 05/29/2022 Overview (05/29/2022): [place] Chronic abdominal pain 11/29/2021 Overview (05/29/2022): Last [...] lateral sleep position, avoidance of alcohol and UTILITY DIVISION PROJECT MANAGER depressants), surgical options, oral/ dental appliances, and [...] EDT) Glucose 93 65 - 199 mg/dL [facility] Comment:Diabetes: >=200 mg/d L plus symptoms Blood Urea Nitrogen 28(H) 10 - 20 mg/dL [facility] Creatinine 1.33 0.80 - 1.50 mg/dL [facility] Sodium 141 135 - 145 mmol/L [facility] Potassium 4.4 3.5 - 5.0 mmol/L [facility] Comment: Please note: Patients with WBC >100,000 may have falsely elevated Potassium levels. For accurate Potassium quantification in these patients send serum separator tube (gold top) for subsequent determinations. Contact the Clinical Chemistry Laboratory if there are any questions. Chloride 106 98 - 107 mmol/L [facility] Carbon Dioxide 25 22 - 31 mmol/L [facility] Anion Gap 10 5 - 15 mmol/L [facility] Calcium 8.9 8.5 - 10.5 mg/dL [facility] Est Glomerular Filtration Rate 68 >=60 mL/min/1. 73 m [facility] Comment: This patient's estimated GFR [...] Luke MD CHEMISTRY ORDERABLES Mariza ellis Result [facility] [place] [address] from Last 3 Months or Most Recently Relevant to Health Maintenance Insurance [id number] (Home) [address] [place] [address] [facility] OOS Care Teams Special Needs Nanny Relationship Specialty Start Date End Date Dilia Pinedo APRN [address] [address] PCP - General Family Medicine 05/25/22
== END 2025-04-28 10:56 | disposition home or self-care (01) ==
LOC: HO.HMCFMS 08:32
PROVIDERS: PCP Student in an Organized Health Care Education/Training Program; Visit Provider Student in an Organized Health Care Education/Training Program
DX: R17 Unspecified jaundice (principal); K58.9 Irritable bowel syndrome, unspecified; K82.8 Other specified diseases of gallbladder; I48.91 Unspecified atrial fibrillation; I48.92 Unspecified atrial flutter; Z98.890 Other specified postprocedural states; R91.1 Solitary pulmonary nodule; F41.9 Anxiety disorder, unspecified; E53.8 Deficiency of other specified B group vitamins

== ENCOUNTER 2025-04-30 13:13 | Outpatient (AMB) | payer BC, OTHER, SELFPAY ==
[2025-04-30 13:18] VITALS: BP 138/89; PULSE 72; RESP 16; TEMP 36.4; O2SAT 97; BMI 27.0
--- NOTE | 2025-04-30 13:18 | MHC.PC.OV ---
Vital Signs 04/30/25 13:18 Height 5 ft 10.55 in Weight 191 lb 4 oz BMI 27.0 BP 138/89 Blood Pressure Location Rt brachial Position Sitting Respiration 16 Pulse 72 Pulse Source Pulse Oximeter Temp 97.6 F Temp Source Oral Pulse Oximetry (%) 97 Oxygen Delivery Method Room Air Intake Visit Reasons: B 12 injection Accompanied by: Self / Same As Patient Allergies Penicillins (PCN) Allergy (Intermediate, Verified 04/30/25 13:19) Rash Tobacco use date assessed: 04/30/25 Dental Screening Dental Screen Date: 04/30/25 Did you have a dental visit in the last 12 months?: Yes Was dental information given to patient?: Patient has dentist HPI HPI Comments History of Present Illness Details Consent Patient was informed and verbally consented to the use of an ambient scribe for clinic note documentation during this visit. History of Present Illness The patient is a 44-year-old male presenting with Vitamin B12 deficiency. Vitamin B12 deficiency: The patient reports a history of low Vitamin B12 levels dating back to college, during which he received injections. Currently, he maintains a diet rich in chicken, beef, greens, and whey protein, suggesting good nutritional intake. Despite this, his recent Vitamin B12 level was 148 pg/mL, which is considered low, although he remains asymptomatic. The plan includes administering Vitamin B12 injections weekly for four weeks, followed by blood tests to monitor levels and assess for potential pernicious anemia. Social History: - Nutrition: Consumes chicken, beef, greens, and whey protein regularly. Diagnostic Results: - Labs: Vitamin B12 level at 148 pg/mL. Review of Systems - General: Denies symptoms despite low Vitamin B12 levels. 10-point ROS reviewed and negative except as noted in HPI Past Medical History - History of Vitamin B12 deficiency requiring injections during college. Health Maintenance vit b12 inj lot number [id number] expiration date of 2026 [facility]?[id number] Physical Exam General: Well-appearing, in no acute distress. Vital signs: Within normal limits. HEENT: Normocephalic, atraumatic. PERRLA, EOMI. Conjunctiva clear, sclera anicteric. Oropharynx clear, mucous membranes moist. TMs intact bilaterally. Neck: Supple, no lymphadenopathy, no thyromegaly, no JVD or carotid bruits. Cardiovascular: RRR, normal S1/S2, no murmurs, rubs, or gallops. Peripheral pulses 2+ and symmetric. No edema. Respiratory: Lungs clear to auscultation bilaterally, no wheezes, rales, or rhonchi. Normal effort. Abdomen: Soft, non-tender, non-distended. Normoactive bowel sounds. No hepatosplenomegaly, no masses. MSK: Full range of motion, no joint swelling or deformity. Normal gait. Skin: Warm, dry, intact. No rashes, lesions, or pallor. Neuro: Alert and oriented x3. Cranial nerves II-XII intact. Strength 5/5 throughout. Sensation intact. Reflexes 2+ symmetric. Normal coordination and gait. Psych: Appropriate mood and affect. Normal judgment and insight. Plan 1. Vitamin B12 Deficiency - Administer Vitamin B12 injections weekly for four weeks. - Follow-up blood tests to monitor Vitamin B12 levels and assess for pernicious anemia. Discussion Notes The patient was informed about the plan to administer Vitamin B12 injections weekly for four weeks, followed by blood tests to monitor levels. The possibility of pernicious anemia was discussed, and the patient was advised on the importance of follow-up testing. Patient Instructions - Receive Vitamin B12 injections weekly for four weeks. - Return for blood tests to check Vitamin B12 levels after the injection course. Medical Decision Making The decision to administer Vitamin B12 injections was based on the patient's history of deficiency and current low levels despite adequate dietary intake. Monitoring post-injection levels will help determine if further investigation for pernicious anemia is necessary. Total time spent caring for the patient today was 30 minutes. This includes time spent before the visit reviewing the chart, time spent documenting, and time spent reviewing laboratory results, diagnostic imaging, medications, performing a medically necessary evaluation, counseling on diagnoses, care coordination [facility] Medical History (Updated 04/30/25 @ 15:20 by Yossi Cordero MD) Total bilirubin, elevated Gallbladder anomaly History of atrial fibrillation Surgical History H/O cardiac ablation Family History Mother Diabetes 1.5, managed as type 2 Father Stroke Clot Social History Housing: Apartment Alcohol intake: current Patient Tobacco Use Status: Former Tobacco user service: No Current occupational status: employed Cognitive needs: No Hearing needs: No Vision needs: Yes (rx glasses) Questionnaire Thrive Questionnaire Date Thrive assessed: 04/14/25 I am a: Patient What is your living situation today?: I have a steady place to live Within the past 12 months, did the food you bought not last and you didn't have the money to get more?: Never true Within the past 12 months, did you worry whether your food would run out before you got money to buy more?: Never true Do you have trouble paying for medicines?: No Do you have trouble getting transportation to medical appointments?: No Do you have trouble paying your heating and electricity bill?: No Do you have trouble taking care of your child, family member or friend?: No Do you have trouble with day-to-day activities such as bathing, preparing meals, shopping, managing finances, etc.?: No Are you currently unemployed and looking for a job?: No Are you interested in more education?: Yes Please select the resources that you would like help with: None Currently or been in a relationship where the following occur: No concerns reported THRIVE Score: 0 BETSY-7 AMB Questionnaire BETSY-7 Date BETSY - 7 assessed: 04/14/25 Source: Developed by Drs. Chin Cardenas, Shannon Coleman, Mandeep Gomez and colleagues, with an educational john from [employer]. Physical exam (Primary Care) Vital Signs: Last Vital Signs Temp 97.6 F 04/30/25 13:18 Pulse 72 04/30/25 13:18 Resp 16 04/30/25 13:18 BP 138/89 04/30/25 13:18 Pulse Ox 97 04/30/25 13:18 Oxygen Delivery Method Room Air 04/30/25 13:18 BMI result Body Mass Index 27.0 Tobacco/Smoking Status: Tobacco use Status Tobacco use date assessed 04/30/25 04/30/25 13:21 Patient Tobacco Use Status Former Tobacco user 04/30/25 13:21 Thrive Assessment: Date of Thrive Assessment Date Thrive assessed 04/14/25 04/30/25 13:21 Currently or been in a relationship where the following occur: No concerns reported Coding Level of Care Code Est Pt Level 3 (64617) Diagnoses Low vitamin B12 level E53.8 Overweight (BMI 25.0-29.9) E66.3 Assessment & Plan Assessment & Plan (1) Low vitamin B12 level: Code(s): E53.8 - Deficiency of other specified B group vitamins (2) Overweight (BMI 25.0-29.9): Code(s): E66.3 - Overweight Category: Medical Plan
== END 2025-04-30 13:37 | disposition home or self-care (01) ==
LOC: HO.HMCFMS 13:14
PROVIDERS: PCP Student in an Organized Health Care Education/Training Program; Visit Provider Student in an Organized Health Care Education/Training Program
DX: E53.8 Deficiency of other specified B group vitamins (principal); E66.3 Overweight

== ENCOUNTER 2025-06-18 12:41 | Outpatient (REF) | payer BC, SELFPAY ==
[2025-06-18 16:05] LABS: Vitamin B12 987 pg/mL (200-900)
--- OUTSIDE RECORDS SUMMARY | 2025-06-18 19:10 | XMS_ITS | Clinical Summary ---
Author Organization Count Includes [facility] Address [facility] [place] [address] Care Team Providers Care Performance Improvement Manager Name Role Phone Dilia Pinedo APRN Primary Care Provider [phone] Allergies Active Allergy Reactions Criticality Noted Date [...] lateral sleep position, avoidance of alcohol and ONCOLOGY TECHNICIAN depressants), surgical options, oral/ dental appliances, and [...] EDT) Glucose 93 65 - 199 mg/dL [facility] Comment:Diabetes: >=200 mg/d L plus symptoms Blood Urea Nitrogen 28(H) 10 - 20 mg/dL [facility] Creatinine 1.33 0.80 - 1.50 mg/dL [facility] Sodium 141 135 - 145 mmol/L [facility] Potassium 4.4 3.5 - 5.0 mmol/L [facility] Comment: Please note: Patients with WBC >100,000 may have falsely elevated Potassium levels. For accurate Potassium quantification in these patients send serum separator tube (gold top) for subsequent determinations. Contact the Clinical Chemistry Laboratory if there are any questions. Chloride 106 98 - 107 mmol/L [facility] Carbon Dioxide 25 22 - 31 mmol/L [facility] Anion Gap 10 5 - 15 mmol/L [facility] Calcium 8.9 8.5 - 10.5 mg/dL [facility] Est Glomerular Filtration Rate 68 >=60 mL/min/1. 73 m [facility] Comment: This patient's estimated GFR [...] Luke MD CHEMISTRY ORDERABLES Mariza ellis Result [facility] [place] [address] from Last 3 Months or Most Recently Relevant to Health Maintenance Insurance [id number] (Home) [address] [place] [id number] [facility] OOS Care Teams Performance Improvement Manager Relationship Specialty Start Date End Date Dilia Pinedo APRN [address] [address] PCP - General Family Medicine 05/25/22
--- OUTSIDE RECORDS SUMMARY | 2025-06-18 19:11 | XMS_ITS | Clinical Summary ---
Author Organization [address] Address [address] [place] [address] Phone Care Team Providers Care Cardiothoracic Icu Rn Name Role Phone Unavailable Primary Care Provider Unavailabl e Encounters Date Type Department Care Team Description 04/10/2025 Telephone Gastroenterology - [address] [phone] Damian Ashraf MD from Last 3 Months Social History Tobacco Use Types Packs/Day Years Used Date Smoking Tobacco: Never Assessed Sex and Gender Information Value Date Recorded Sex Assigned at Not on file Legal Sex Male 10:25 AM EDT Gender Identity Not on file Sexual Orientation Not on file Plan of Treatment Upcoming Encounters Date Type Department Care Team ([facility] st Contact Info) Description 10/07/2025 8:20 AM EDT Consult Gastroenterology - [address] [place] [phone] Meghan Regalado, PILAR [address] [place] [phone] Health Maintenance Due Date Last Done Comments Colorectal Cancer Screening: Colonoscopy 1978 DTaP,Tdap,and Td Vaccines (1 - Tdap) 1997 Hepatitis B Vaccines (1 of 3 - 19+ 3-dose series) 1997 Depression Screening 07/09/2024 Cholesterol Screening (Lipid Panel) 03/03/2025 HIV Screening 03/03/2025 Hepatitis C Screening 03/03/2025 Social Influencers of Health Screening 03/03/2025 COVID-19 Vaccine (2024-2 6 season) 2025 Influenza Vaccine (#1) 2025 RSV [...] patient's age to complete this topic Insurance [facility] PL[facility]
== END 2025-06-18 12:42 ==
LOC: HO.CHCLDS 12:41
PROVIDERS: Visit Provider Student in an Organized Health Care Education/Training Program
DX: Z13.9 Encounter for screening, unspecified (principal)
CPT/HCPCS: 36415; 82607

== ENCOUNTER 2025-06-19 10:26 | Outpatient (REF) | payer BC, SELFPAY ==
--- NOTE | ~2025-06-19 | US_ITS ---
CLINICAL HISTORY: R17 - Unspecified jaundice US abdomen limited with color Doppler Comparison: None Findings: Visualized pancreas is normal. Tail obscured by bowel gas. Liver is normal in size and echotexture. Right lobe length 12.3 cm. Echogenic lesion right lobe measuring 7 x 6 x 5 mm either focal fatty infiltration or hemangioma MRI would be confirmatory. Common duct 1.3 mm diameter. Gallbladder is physiologically distended. No gallstones, sludge or wall abnormalities. No gallbladder wall thickening. No pericholecystic fluid. No sonographic Perez sign. Right kidney measures, 11.3 cm in length. Normal cortical width and echotexture. No hydronephrosis calculus or mass. Impression: 1. Echogenic lesion right lobe of the liver can be best characterized by multiphase contrast-enhanced MRI. This document has been electronically signed by: Pilo Cano MD on 06/19/2025 15:23:34
== END 2025-06-19 10:27 | disposition home or self-care (01) ==
LOC: HO.HMGCX 10:26
PROVIDERS: PCP Student in an Organized Health Care Education/Training Program; Visit Provider Student in an Organized Health Care Education/Training Program
DX: R17 Unspecified jaundice (principal)
CPT/HCPCS: 76705

== ENCOUNTER → 2025-06-19 10:32 | Outpatient (BNV) | payer BC, SELFPAY | PROVIDERS: PCP Student in an Organized Health Care Education/Training Program; Visit Provider Radiology Diagnostic Radiology | DX: K76.9 Liver disease, unspecified (principal) | CPT/HCPCS: 76705 ==

== ENCOUNTER 2025-07-06 13:41 | Outpatient (AMB) | payer BC, SELFPAY ==
--- NOTE | 2025-07-06 13:43 | A.OFFVIS_ITS ---
Vital Signs 07/06/25 13:44 Height 5 ft 10.55 in Weight 193 lb BMI 27.3 BP 129/89 Blood Pressure Location Rt brachial Position Sitting Pulse 61 Intake Visit Reasons: Other congenital malformations of gallbladder Intake Note: Patient is seen in office for evaluation and treatment of malformations of the gallbladder. Recently moved to [place] from [place]. Had consultation with general surgeon in [place]. 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 Patient c/o: on and off RUQ pain that spreads to back. Intensity of pain w/heartburn feeling getting worse over time. Fatty foods can trigger pain. Aleve relieves pain. Imaging US: 06/19/25 Photography Coordinator Required: No Accompanied by: Self / Same As Patient Allergies Penicillins (PCN) Allergy (Intermediate, Verified 07/06/25 13:54) Rash Medication List - Last Reconciled 07/06/25 by Emmanuel Juarez MD cyanocobalamin (vitamin B-12) 1,000 mcg IM QWEEK dicyclomine 10 mg PO BID HPI Comments Details: 44-year-old male patient presenting for evaluation of possible biliary hyperkinesia. He previously lived in [place] and underwent workup for combination of right upper quadrant abdominal pain, nausea, diarrhea which occurred several times monthly but seems to be increasing in severity. He underwent workup with CT abdomen and pelvis which revealed a normal-appearing gallbladder as well as ultrasound of the abdomen which was significant only for possible hemangioma in the liver. HIDA scan on 2 occasions revealed a high ejection fraction suggestive of biliary hyperkinesia. He was previously evaluated by a surgeon in [place] in the plan was to electively undergo cholecystectomy. The patient never scheduled the surgery and he subsequently moved to [facility]. Over time the symptoms seemed to be worsening and becoming more frequent and now he is considering cholecystectomy after the boarding season. He denies any previous abdominal surgeries. He also denies fever or chills. [facility] Medical History Total bilirubin, elevated Gallbladder anomaly History of atrial fibrillation Surgical History H/O cardiac ablation Family History Mother Diabetes 1.5, managed as type 2 Father Stroke Clot Social History Housing: Apartment Alcohol intake: current Alcohol intake frequency: holidays/special occasions only Patient Tobacco Use Status: Former Tobacco user service: No Current occupational status: employed Cognitive needs: No Hearing needs: No Vision needs: Yes (rx glasses) Review of Systems Const All systems reviewed & are unremarkable except as noted in HPI and below Physical Exam Vital Signs: Last Vital Signs Pulse 61 07/06/25 13:44 BP 129/89 07/06/25 13:44 BMI result Body Mass Index 27.3 Const General: cooperative and no acute distress Nutritional Appearance: well nourished Orientation/consciousness: patient oriented x3 Limitations: no limitations HEENT Head: Yes normocephalic and Yes atraumatic Ears: hearing grossly normal bilaterally Resp Effort & Inspection: normal respiratory effort, no audible wheezes, no cough and no respiratory distress Cardio Jugular venous distension: no JVD GI Inspection: Yes normal to inspection Palpation (GI): Soft to palpation, nontender, no guarding, not rigid and No hepatosplenomegaly present Percussion: Yes normal to percussion Auscultation: normal bowel sounds Rectal Exam - Male: Yes deferred Skin Other: Warm, dry, no rash Neuro General: patient oriented x3 Extrem General: Yes no clubbing, cyanosis or edema Assessment & Plan Assessment & Plan (1) Biliary dyskinesia: Code(s): K82.8 - Other specified diseases of gallbladder Category: Medical Plan 44-year-old male patient presenting with complaints of abdominal pain chronic in nature occurring over the past 10+ years, increasing in severity and frequency. Workup with HIDA scans revealed hypokinesis of the gallbladder. Ultrasound and gallbladder were negative for cholelithiasis or wall thickening. The patient's abdominal symptoms are highly suggestive of gallbladder type pain although it is difficult to know for sure if his symptoms will improve with cholecystectomy. I reviewed the procedure, risks and alternatives of cholecystectomy and he indicates that he is interested in proceeding with the surgery but will wait until the spring time to schedule. He will call the office when he is ready to schedule the surgery. He is welcome to call and returned to the office for any changes concerns. Coding Level of Care Code New Pt Level 4 (82336) Diagnoses Biliary dyskinesia K82.8
[2025-07-06 13:44] VITALS: BP 129/89; PULSE 61; BMI 27.3
--- OUTSIDE RECORDS SUMMARY | 2025-07-06 15:54 | XMS_ITS | Clinical Summary ---
Author Organization [address] Address [address] [place] [address] Phone Care Team Providers Care Instructional Writer Name Role Phone Unavailable Primary Care Provider Unavailabl e Encounters Date Type Department Care Team Description 04/10/2025 Telephone Gastroenterology - [address] [phone] Damian Ashraf MD from Last 3 Months Social History Tobacco Use Types Packs/Day Years Used Date Smoking Tobacco: Never Assessed Sex and Gender Information Value Date Recorded Sex Assigned at Not on file Legal Sex Male 10:25 AM EDT Gender Identity Not on file Sexual Orientation Not on file Plan of Treatment Upcoming Encounters Date Type Department Care Team ([facility] st Contact Info) Description 10/07/2025 8:20 AM EDT Consult Gastroenterology - [address] [place] [phone] Meghan Regalado, PILAR [address] [place] [id number] Health Maintenance Due Date Last Done Comments [...] patient's age to complete this topic Insurance [facility]
--- OUTSIDE RECORDS SUMMARY | 2025-07-06 15:54 | XMS_ITS | Clinical Summary ---
Author Organization [facility] Address [facility] [place] [address] Care Team Providers Care Rail Operations Controller Name Role Phone Dilia Pinedo APRN Primary Care Provider [phone] Allergies Active Allergy Reactions Criticality Noted Date [...] lateral sleep position, avoidance of alcohol and WOODWORKING MACHINIST depressants), surgical options, oral/ dental appliances, and [...] Mariza ellis Result [facility] [place] [address] from Last 3 Months or Most Recently Relevant to Health Maintenance Insurance [id number] (Home) [address] [place] [address] [facility] OOS Care Teams Rail Operations Controller Relationship Specialty Start Date End Date Dilia Pinedo APRN [address] [address] PCP - General Family Medicine 05/25/22
== END 2025-07-06 14:17 | disposition home or self-care (01) ==
LOC: HO.HGS 13:42
PROVIDERS: PCP Student in an Organized Health Care Education/Training Program; Visit Provider Surgery
DX: K82.8 Other specified diseases of gallbladder (principal)
CPT/HCPCS: 99204

== ENCOUNTER 2025-07-07 15:22 | Outpatient (AMB) | payer BC, SELFPAY ==
--- NOTE | 2025-07-07 15:24 | A.OFFPC_ITS ---
Vital Signs 07/07/25 15:27 Height 5 ft 10.55 in Weight 195 lb 8 oz BMI 27.6 BP 134/85 Blood Pressure Location Lt brachial Position Sitting Respiration 17 Pulse 70 Pulse Source Pulse Oximeter Temp 97.3 F Temp Source Oral Pulse Oximetry (%) 99 Oxygen Delivery Method Room Air Intake Visit Reasons: f/u labs Intake Note: Patient preset to review labs. 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 Pernicious Anemia: The patient has a history of pernicious anemia and was treated with vitamin B12 injections. His vitamin B12 level improved from 148 to 987, and he reports feeling better since starting treatment. Liver Lesion: An abdominal ultrasound on 06/19 revealed an echogenic lesion in the right lobe of the liver measuring 6 x 5, with differential diagnoses including focal fatty infiltration or hemangioma. The liver was noted to be normal in size and echo texture. Diarrhea: The patient experiences diarrhea, which he manages with a bile binder, colestipol. He has been rationing a prior prescription, taking it about two days a week, and finds it is preventative if taken before a fatty meal and effective at stopping symptoms when they occur, such as after eating pizza. biliary dyskinesia: The patient had a surgical consult for his gallbladder, where cholecystectomy was offered as an option. He remains undecided about the surgery and is considering having it done in the spring. Medications: - Colestipol (Cholestid): taken approxim ately two days per week for diarrhea. Diagnostic Results: - Labs: Vitamin B12 level increased from 148 to 987 following injections. - Imaging: Abdominal ultrasound on 06/19 showed a 6 x 5 echogenic lesion in the right lobe of the liver, suspicious for either focal fatty infiltration or hemangioma. Past Medical History - Pernicious anemia - History of gallbladder disease, status post surgical consultation. Health Maintenance - Patient is advised on management of vi tamin B12 deficiency. - Discussion regarding elective cholecys tectomy, including the benefits of undergoing the procedure while younger. COUNT INCLUDES THE [facility] Medical History Total bilirubin, elevated Gallbladder anomaly History of atrial fibrillation Surgical History H/O cardiac ablation Family History Mother Diabetes 1.5, managed as type 2 Father Stroke Clot Social History (Updated 07/07/25 @ 15:27 by Augusto Yoder CMA) Housing: Apartment Alcohol intake: current Alcohol intake frequency: holidays/special occasions only Patient Tobacco Use Status: Former Tobacco user e-Cigarette/Vaping Use: Never Used Second Hand Smoke Exposure: No service: No Current occupational status: employed Cognitive needs: No Hearing needs: No Vision needs: Yes (rx glasses) Questionnaire Thrive Questionnaire Date Thrive assessed: 04/07/25 I am a: Patient What is your living situation today?: I have a steady place to live Within the past 12 months, did the food you bought not last and you didn't have the money to get more?: Never true Within the past 12 months, did you worry whether your food would run out before you got money to buy more?: Never true Do you have trouble paying for medicines?: No Do you have trouble getting transportation to medical appointments?: No Do you have trouble paying your heating and electricity bill?: No Do you have trouble taking care of your child, family member or friend?: No Do you have trouble with day-to-day activities such as bathing, preparing meals, shopping, managing finances, etc.?: No Are you currently unemployed and looking for a job?: No Are you interested in more education?: Yes Currently or been in a relationship where the following occur: No concerns reported THRIVE Score: 0 BETSY-7 AMB Questionnaire BETSY-7 Date BETSY - 7 assessed: 04/14/25 Source: Developed by Drs. Chin Cardenas, Shannon Coleman, Mandeep Gomez and colleagues, with an educational john from [employer]. Review of Systems Narrative Review of Systems - General: Reports feeling better and noticing a difference after vitamin B12 injections. - Gastrointestinal: Reports episodes of diarrhea, particularly after consuming fatty meals. 10-point ROS reviewed and negative except as noted in HPI Physical exam (Primary Care) Vital Signs: Last Vital Signs Temp 97.3 F 07/07/25 15:27 Pulse 70 07/07/25 15:27 Resp 17 07/07/25 15:27 BP 134/85 07/07/25 15:27 Pulse Ox 99 07/07/25 15:27 Oxygen Delivery Method Room Air 07/07/25 15:27 BMI result Body Mass Index 27.6 Tobacco/Smoking Status: Tobacco use Status Tobacco use date assessed 04/30/25 07/07/25 15:30 Patient Tobacco Use Status Former Tobacco user 07/07/25 15:30 e-Cigarette/Vaping Use Never Used 07/07/25 15:30 Thrive Assessment: Date of Thrive Assessment Date Thrive assessed 04/07/25 07/07/25 15:30 Currently or been in a relationship where the following occur: No concerns reported Narrative Physical Exam General: Well-appearing, in no acute distress. Vital signs: Within normal limits. HEENT: Normocephalic, atraumatic. PERRLA, EOMI. Conjunctiva clear, sclera anicteric. Oropharynx clear, mucous membranes moist. TMs intact bilaterally. Neck: Supple, no lymphadenopathy, no thyromegaly, no JVD or carotid bruits. Cardiovascular: RRR, normal S1/S2, no murmurs, rubs, or gallops. Peripheral pulses 2+ and symmetric. No edema. Respiratory: Lungs clear to auscultation bilaterally, no wheezes, rales, or rhonchi. Normal effort. Abdomen: Soft, non-tender, non-distended. Normoactive bowel sounds. No hepa tosplenomegaly, no masses. Echogenic lesion in the right lobe of the liver measuring 6 x 5 cm, either focal fatty infiltration or hemangioma. MSK: Full range of motion, no joint swelling or deformity. Normal gait. Skin: Warm, dry, intact. No rashes, lesions, or pallor. Neuro: Alert and oriented x3. Cranial nerves II-XII intact. Strength 5/5 throughout. Sensation intact. Reflexes 2+ symmetric. Normal coordination and gait. Psych: Appropriate mood and affect. Normal judgment and insight. Coding Level of Care Code Est Pt Level 3 (76403) Add On Problem Visit Only Diagnoses Overweight (BMI 25.0-29.9) E66.3 Biliary dyskinesia K82.8 Low vitamin B12 level R79.89 Liver lesion K76.9 Diarrhea R19.7 History of pernicious anemia Z86.2 Assessment & Plan Assessment & Plan (1) Overweight (BMI 25.0-29.9): Code(s): E66.3 - Overweight Category: Medical (2) Biliary dyskinesia: Code(s): K82.8 - Other specified diseases of gallbladder Category: Medical (3) Low vitamin B12 level: Code(s): R79.89 - Other specified abnormal findings of blood chemistry (4) Liver lesion: Code(s): K76.9 - Liver disease, unspecified Category: Medical (5) Diarrhea: Code(s): R19.7 - Diarrhea, unspecified Category: Medical (6) History of pernicious anemia: Code(s): Z86.2 - Personal history of diseases of the blood and blood-forming organs and certain disorders involving the immune mechanism Category: Medical Plan Consent No formal consent for procedures was obtained during this visit. Patient was informed and verbally consented to the use of an ambient scribe for clinic note documentation during this visit. Plan 1. Pernicious Anemia - The patient has responded well to vitamin B12 injections, with levels increasing from 148 to 987. - Vitamin B12 injections will be discontinued. - The patient will be started on sublingual cyanocobalamin (vitamin B12) to be taken daily for maintenance. 2. Liver Lesion - An abdominal ultrasound revealed an echogenic lesion in the right lobe of the liver, with the differential diagnosis including focal fatty infiltration or hemangioma, both of which are benign. - A multiphase, contrast-enhanced MRI of the liver will be ordered for further characterization, as recommended by the ultrasound report. 3. Diarrhea - The patient reports symptomatic relief of diarrhea with colestipol. - A prescription for Colestipol 1 gram tablets was sent, to be taken by mouth twice daily, with a quantity of 60 to ensure the patient has an adequate supply. 4. biliary dyskinesia - The patient is contemplating an elective cholecystectomy and had a surgical consult. - Discussed the benefits of proceeding with surgery at a younger age, including better healing and recovery. - The patient will continue to consider the procedure and may proceed in the spring. Discussion Notes I reviewed the patient's lab results, highlighting the significant improvement in his vitamin B12 levels from 148 to 987 post-injections and his associated symptomatic improvement. We will transition from injections to daily sublingual B12 for maintenance. We also discussed the abdominal ultrasound finding of an echogenic liver lesion, and I explained the differential diagnoses are likely benign, such as focal fatty infiltration or a hemangioma. I informed him that I will order a contrast MRI for better characterization. I addressed his concerns about diarrhea by prescribing colestipol to manage his symptoms. Finally, we discussed his consideration for a cholecystectomy, and I advised that proceeding while he is young would be beneficial for recovery, though the decision remains his. Patient Instructions - You can stop the vitamin B12 injections. - Start taking one Vitamin B12 tablet that dissolves under your tongue every day to keep your levels normal. - A prescription for Colestipol has been sent to your pharmacy to help with diarrhea. - An order will be placed for an MRI of your liver to get a better look at the spot found on your ultrasound. - Continue to consider having your gallbladder removed, as recovery is often easier when you are younger. Medical Decision Making The patient is a 44-year-old male with pernicious anemia whose vitamin B12 level has normalized from 148 to 987 with injections, accompanied by symptomatic improvement. The treatment plan is to de-escalate from injections to daily sublingual B12 for maintenance therapy. An incidental echogenic liver lesion was noted on a recent abdominal ultrasound, with likely benign differentials of focal fatty infiltration or hemangioma. To confirm the diagnosis and rule out other pathologies, a multiphase contrast- enhanced MRI is clinically indicated and will be ordered. The patient's complaint of postprandial diarrhea after fatty meals, which responds to a bile acid sequestrant, is consistent with bile acid malabsorption, likely related to underlying gallbladder pathology. A prescription for colestipol has been provided for symptom management. Regarding the option of cholecystectomy, I reinforced the benefits of proceeding with surgery at a younger age to optimize recovery and minimize future complications. Total Time Statement 20 min Total time spent caring for the patient today includes pre-visit chart review, documentation, review of laboratory and diagnostic imaging results, medication reconciliation, medically necessary evaluation, counseling on diagnoses, care coordination, ordering appropriate tests and medications, review of tests performed by other providers, reporting test results to the patient, and communication with other healthcare providers. Orders: Orders MR nunes wo/w con Today K76.9 - Liver disease, unspecified Medications: New mecobalamin (vitamin B12) place tablet under tongue and allow to dissolve for at least30 secs before swallowing 1,000 mcg sublingual BEDTIME 90 tabs 0RF colestipol 1 g PO BID 60 tabs 0RF Discontinued cyanocobalamin (vitamin B-12) Discontinued Reason: Doctor's Order 1,000 mcg IM QWEEK 150 mL 0RF
[2025-07-07 15:27] VITALS: BP 134/85; PULSE 70; RESP 17; TEMP 36.3; O2SAT 99; BMI 27.6
--- OUTSIDE RECORDS SUMMARY | 2025-07-07 18:47 | XMS_ITS | Clinical Summary ---
Author Organization [facility] Address [facility] [place] [address] Care Team Providers Care Assurance Senior Manager Insurance Name Role Phone Dilia Pinedo APRN Primary Care Provider [phone] Allergies Active Allergy Reactions Criticality Noted Date [...] lateral sleep position, avoidance of alcohol and [employer] depressants), surgical options, oral/ dental appliances, and [...] EDT) Glucose 93 65 - 199 mg/dL [facility] Comment:Diabetes: >=200 mg/d L plus symptoms Blood Urea Nitrogen 28(H) 10 - 20 mg/dL [facility] Creatinine 1.33 0.80 - 1.50 mg/dL [facility] Sodium 141 135 - 145 mmol/L [facility] Potassium 4.4 3.5 - 5.0 mmol/L [facility] Comment: Please note: Patients with WBC >100,000 may have falsely elevated Potassium levels. For accurate Potassium quantification in these patients send serum separator tube (gold top) for subsequent determinations. Contact the Clinical Chemistry Laboratory if there are any questions. Chloride 106 98 - 107 mmol/L [facility] Carbon Dioxide 25 22 - 31 mmol/L [facility] Anion Gap 10 5 - 15 mmol/L [facility] Calcium 8.9 8.5 - 10.5 mg/dL [facility] Est Glomerular Filtration Rate 68 >=60 mL/min/1. 73 m [facility] Comment: This patient's estimated [...] Luke MD CHEMISTRY ORDERABLES Mariza ellis Result [facility] [place] [address] from Last 3 Months or Most Recently Relevant to Health Maintenance Insurance [id number] (Home) [address] [place] [id number] [facility] Care Teams Assurance Senior Manager Insurance Relationship Specialty Start Date End Date Dilia Pinedo APRN [phone] [id number] PCP - General Family Medicine 05/25/22
--- OUTSIDE RECORDS SUMMARY | 2025-07-07 18:47 | XMS_ITS | Clinical Summary ---
Author Organization [address] Address [address] [place] [address] Phone Care Team Providers Care Pole Framer Machine Name Role Phone Unavailable Primary Care Provider Unavailabl e Encounters Date Type Department Care Team Description 04/10/2025 Telephone Gastroenterology - [address] [phone] Damian Ashraf MD from Last 3 Months Social History Tobacco Use Types Packs/Day Years Used Date Smoking Tobacco: Never Assessed Sex and Gender Information Value Date Recorded Sex Assigned at Not on file Legal Sex Male 10:25 AM EDT Gender Identity Not on file Sexual Orientation Not on file Plan of Treatment Upcoming Encounters Date Type Department Care Team ([facility] st Contact Info) Description 10/07/2025 8:20 AM EDT Consult Gastroenterology - [address] [place] [phone] Meghan Regalado, PILAR [address] [place] [id number] Health Maintenance Due Date Last Done Comments [...] patient's age to complete this topic Insurance [facility]
== END 2025-07-07 15:44 | disposition home or self-care (01) ==
LOC: HO.HMCFMS 15:23
PROVIDERS: PCP Student in an Organized Health Care Education/Training Program; Visit Provider Student in an Organized Health Care Education/Training Program
DX: E66.3 Overweight (principal); K82.8 Other specified diseases of gallbladder; R79.89 Other specified abnormal findings of blood chemistry; K76.9 Liver disease, unspecified; R19.7 Diarrhea, unspecified; Z86.2 Personal history of diseases of the blood and blood-forming organs and certain disorders involving the immune mechanism